=== PATIENT | male | born 1995 | race Caucasian/White ===

== ENCOUNTER 2016-12-29 00:51 | Emergency (ER) | payer OTHER ==
[~2016-12-29] VITALS: Ht 170.2 cm; Wt 61.5 kg
[~2016-12-29 00:51] MED LIST: NARCAN4 MG NS
[2016-12-29 01:10] LABS: MCH 30.3 PG (29.0-34.0); MCHC 35.2 G/DL (30.0-36.0); MCV 85.9 FL (86-99); MEAN PLAT.VOLUME 8.8 uM^3 (9.0-12.4); PLATELET COUNT 233 K/uL (156-360); RBC DIS.WIDTH-CV 12.6 % (11.8-14.6); RBC DIS.WIDTH-SD 38.8 % (39-53); RED BLOOD COUNT 4.89 M/uL (4.00-5.50)
[2016-12-29 01:20] LABS: CHLORIDE 105 mEq/L (99-109); POTASSIUM 3.7 mEq/L (3.7-5.4); SODIUM 141 mEq/L (136-147)
[2016-12-29 01:23] LABS: GLUCOSE 86 mg/dL (70-99)
[2016-12-29 01:24] LABS: ANION GAP 13 MEQ/L (2-14)
[2016-12-29 01:25] LABS: TOTAL BILIRUBIN 0.3 mg/dL (0.0-1.0)
[2016-12-29 01:26] LABS: ALKALINE PHOSPHATASE 73 IU/L (3-129); SERUM ETHYL ALCOHOL 368 mg/dL
[2016-12-29 01:27] LABS: GFR ESTIMATE (CALCULATED) > 59 mL/min/
[2016-12-29 01:28] LABS: UREA NITROGEN (BUN) 9 mg/dL (9-23)
[2016-12-29 01:39] VITALS: BP 136/96
== END 2016-12-29 01:39 | disposition home or self-care (01) ==
LOC: EME 00:51
PROVIDERS: Emergency Medicine
DX: F10.129 Alcohol abuse with intoxication, unspecified (principal); F17.200 Nicotine dependence, unspecified, uncomplicated; Z21 Asymptomatic human immunodeficiency virus [HIV] infection status
CPT/HCPCS: 80053; 81003; 85027; 99281; 99284; G0480

== ENCOUNTER 2017-03-21 00:12 | Inpatient (IN) | payer OTHER ==
[~2017-03-21] VITALS: Ht 170.2 cm; Wt 63.0 kg
[2017-03-21 00:48] LABS: HEMATOCRIT 43.2 % (38.0-50.0); MCH 32.2 PG (29.0-34.0); MCHC 33.1 G/DL (30.0-36.0); MCV 97.3 FL (86-99); MEAN PLAT.VOLUME 9.6 uM^3 (9.0-12.4); PLATELET COUNT 96 K/uL (156-360); RED BLOOD COUNT 4.44 M/uL (4.00-5.50); WHITE BLOOD COUNT 7.3 K/uL (4.1-10.2)
[2017-03-21 00:57] LABS: CHLORIDE 102 mEq/L (99-109); POTASSIUM 3.4 mEq/L (3.7-5.4); SODIUM 140 mEq/L (136-147)
[2017-03-21 00:59] LABS: GLUCOSE 143 mg/dL (70-99)
[2017-03-21 01:01] LABS: ANION GAP 26 MEQ/L (2-14)
[2017-03-21 01:02] LABS: SERUM ETHYL ALCOHOL < 10 mg/dL
[2017-03-21 01:03] LABS: GFR ESTIMATE (CALCULATED) > 59 mL/min/
[2017-03-21 01:05] LABS: UREA NITROGEN (BUN) 9 mg/dL (9-23)
[2017-03-21 01:06] LABS: SALICYLATE < 5.0 MG/DL (15-30)
[2017-03-21 01:07] LABS: CREATINE KINASE 385 IU/L (1-294); TOTAL CK 385 IU/L (1-294)
[2017-03-21 01:12] LABS: CK-MB 3.4 ng/mL (0.0-4.9)
[2017-03-21 03:02] LABS: CREATININE 0.7 mg/dL (0.6-1.3); POTASSIUM 4.4 mEq/L (3.7-5.4)
[2017-03-21 05:25] VITALS: BP 132/76
[2017-03-21 08:25] VITALS: BP 127/82
[2017-03-21 10:47] LABS: ALKALINE PHOSPHATASE 65 IU/L (3-129); ANION GAP 11 MEQ/L (2-14); CHLORIDE 103 MEQ/L (99-109); GFR ESTIMATE (CALCULATED) > 59 mL/min/; POTASSIUM 3.9 MEQ/L (3.7-5.4); SAMPLE HEMOLYSIS CHECK 0; SAMPLE ICTERIC CHECK 0; SAMPLE LIPEMIA CHECK 0; SODIUM 138 MEQ/L (136-147); TOTAL BILIRUBIN 1.4 MG/DL (0.0-1.0); UREA NITROGEN (BUN) 7 mg/dL (9-23)
[2017-03-21 10:48] LABS: GLUCOSE 84 mg/dL (70-99)
[2017-03-21] MEDS ORDERED: VENTOLIN HFA18 GM IH (11:01)
[2017-03-21] MEDS ORDERED: GENVOYA TABLET1 EACH PO (11:02)
[2017-03-21] MEDS ORDERED: METHADONE H5 MG/5 ML PO (11:43)
[2017-03-21 12:26] VITALS: BP 136/87
[2017-03-21 16:00] VITALS: BP 150/79
[2017-03-21 19:38] VITALS: BP 147/91
[2017-03-22 00:10] VITALS: BP 139/89
[2017-03-22 03:50] VITALS: BP 133/86
[2017-03-22 06:43] VITALS: BP 129/76
[2017-03-22 07:29] LABS: ALKALINE PHOSPHATASE 66 IU/L (3-129); ANION GAP 11 MEQ/L (2-14); CHLORIDE 98 MEQ/L (99-109); GFR ESTIMATE (CALCULATED) > 59 mL/min/; GLUCOSE 79 mg/dL (70-99); POTASSIUM 3.4 MEQ/L (3.7-5.4); SAMPLE HEMOLYSIS CHECK 0; SAMPLE ICTERIC CHECK 0; SAMPLE LIPEMIA CHECK 0; SODIUM 138 MEQ/L (136-147); TOTAL BILIRUBIN 1.4 MG/DL (0.0-1.0); UREA NITROGEN (BUN) 6 mg/dL (9-23)
[2017-03-22 07:37] LABS: EOSINOPHIL (%) 2.3 % (0-5); EOSINOPHIL COUNT 0.1 K/uL (0-0.3); HEMATOCRIT 41.6 % (38.0-50.0); IMMATURE GRANULOCYTE (%) 0.6 % (0.0-0.7); LYMPHOCYTE COUNT 1.1 K/uL (1.0-2.8); MCH 31.9 PG (29.0-34.0); MCHC 33.2 G/DL (30.0-36.0); MCV 96.1 FL (86-99); MONOCYTE (%) 5.8 % (3-12); MONOCYTE COUNT 0.2 K/uL (0-0.8); NEUTROPHIL (%) 58.2 % (45-76); PLATELET COUNT 75 K/uL (156-360); RBC DIS.WIDTH-CV 11.5 % (11.8-14.6); RED BLOOD COUNT 4.33 M/uL (4.00-5.50)
[2017-03-22 07:43] LABS: WHITE BLOOD COUNT 3.5 K/uL (4.1-10.2)
== END 2017-03-22 10:10 | disposition left against medical advice (07) | DRG 894 ==
LOC: EME 00:12 → EDOF 04:14 → 5EAST 04:52
PROVIDERS: Emergency Medicine; Hospitalist; Internal Medicine
DX: F10.239 Alcohol dependence with withdrawal, unspecified (principal); R56.9 Unspecified convulsions; E87.2 Acidosis; D69.6 Thrombocytopenia, unspecified; Y90.0 Blood alcohol level of less than 20 mg/100 ml; F11.10 Opioid abuse, uncomplicated; B20 Human immunodeficiency virus [HIV] disease; E87.6 Hypokalemia; R73.9 Hyperglycemia, unspecified; F17.200 Nicotine dependence, unspecified, uncomplicated
CPT/HCPCS: 70450; 71010; 80047; 80048; 80053; 82550; 82553; 83735; 85025; 85027; 93005; 99202; 99281; 99285; G0480; J1630; J1644; J2060; J3411; J3475; J3480; J7030; S0028

== ENCOUNTER 2017-03-24 10:14 | Emergency (ER) | payer OTHER ==
[~2017-03-24] VITALS: Ht 170.2 cm; Wt 58.3 kg
[~2017-03-24 10:14] MED LIST changes: +GENVOYA TABLET1 EACH PO; +METHADONE H5 MG/5 ML PO; +VENTOLIN HFA18 GM IH
[2017-03-24 11:07] LABS: HEMATOCRIT 40.5 % (38.0-50.0); MCH 32.1 PG (29.0-34.0); MCHC 33.1 G/DL (30.0-36.0); MCV 96.9 FL (86-99); MEAN PLAT.VOLUME 9.1 uM^3 (9.0-12.4); PLATELET COUNT 111 K/uL (156-360); RBC DIS.WIDTH-CV 11.9 % (11.8-14.6); RBC DIS.WIDTH-SD 42.7 % (39-53); RED BLOOD COUNT 4.18 M/uL (4.00-5.50); WHITE BLOOD COUNT 5.2 K/uL (4.1-10.2)
[2017-03-24 11:16] LABS: CHLORIDE 101 mEq/L (99-109); POTASSIUM 4.8 mEq/L (3.7-5.4); SODIUM 139 mEq/L (136-147)
[2017-03-24 11:20] LABS: GFR ESTIMATE (CALCULATED) > 59 mL/min/; GLUCOSE 103 mg/dL (70-99)
[2017-03-24 11:21] LABS: UREA NITROGEN (BUN) 12 mg/dL (9-23)
[2017-03-24 11:25] LABS: SERUM ETHYL ALCOHOL < 10 mg/dL
[2017-03-24 11:30] LABS: TROP-I INTERPRETATION NEGATIVE; TROPONIN-I < 0.01 ng/mL (0.0-0.30)
[2017-03-24 12:29] LABS: POINT-OF-CARE METER ID UU14100415
[2017-03-24 12:31] LABS: ANION GAP 11 MEQ/L (2-14)
[2017-03-24 12:44] LABS: TOTAL BILIRUBIN 0.4 mg/dL (0.0-1.0)
[2017-03-24 12:45] LABS: ALKALINE PHOSPHATASE 68 IU/L (3-129)
[2017-03-24 12:47] LABS: DIRECT BILIRUBIN 0.2 mg/dL (0.0-0.3)
[2017-03-24 12:48] LABS: LIPASE 83 U/L (1.0-51.0)
[2017-03-24 13:06] LABS: AMPHETAMINE NEGATIVE (500 ng/mL); BARBITURATES NEGATIVE (200 ng/mL); BENZODIAZEPINES NEGATIVE (150 ng/mL); COCAINE NEGATIVE (150 ng/mL); INTERNAL CONTROLS VALID? YES; METHADONE PRESUMPTIVE POSITIVE (200 ng/mL); METHAMPHETAMINE NEGATIVE (500 ng/mL); OPIATES (MORPHINE) NEGATIVE (100 ng/mL); OXYCODONE NEGATIVE (100 ng/mL); PHENCYCLIDINE NEGATIVE (25 ng/mL); PROPOXYPHENE NEGATIVE (300 ng/mL); THC CANNABINOIDS NEGATIVE (50 ng/mL); TRICYCLIC ANTIDEPRESSANTS NEGATIVE (300 ng/mL)
[2017-03-24 13:23] LABS: TROP-I INTERPRETATION NEGATIVE; TROPONIN-I < 0.01 ng/mL (0.0-0.30)
[2017-03-24] MEDS ORDERED: ZOFRAN ODT4 MG PO (13:43)
[2017-03-24] MEDS ORDERED: LIBRIUM25 MG PO (13:43)
[2017-03-24 14:06] VITALS: BP 136/91
== END 2017-03-24 14:07 | disposition home or self-care (01) ==
LOC: EME 10:14
PROVIDERS: Nurse Practitioner Family
DX: F10.10 Alcohol abuse, uncomplicated (principal); R07.9 Chest pain, unspecified; F43.9 Reaction to severe stress, unspecified; Z21 Asymptomatic human immunodeficiency virus [HIV] infection status; F19.10 Other psychoactive substance abuse, uncomplicated; R56.9 Unspecified convulsions; F17.200 Nicotine dependence, unspecified, uncomplicated
CPT/HCPCS: 71020; 80048; 80076; 82948; 83690; 84484; 85027; 90832; 93005; 99281; 99284; G0480

== ENCOUNTER 2017-04-01 23:36 | Emergency (ER) | payer OTHER ==
[~2017-04-01] VITALS: Ht 170.2 cm; Wt 57.5 kg
[~2017-04-01 23:36] MED LIST changes: +LIBRIUM25 MG PO; +ZOFRAN ODT4 MG PO
[2017-04-02] MEDS ORDERED: MOTRIN800 MG PO (01:19)
[2017-04-02] MEDS ORDERED: VALIUM5 MG PO (01:19)
[2017-04-02 01:29] VITALS: BP 110/64
== END 2017-04-02 01:42 | disposition home or self-care (01) ==
LOC: EME 23:36
DX: S09.90XA Unspecified injury of head, initial encounter (principal); S00.81XA Abrasion of other part of head, initial encounter; T74.11XA Adult physical abuse, confirmed, initial encounter; Y04.0XXA Assault by unarmed brawl or fight, initial encounter; Y07.03 Male partner, perpetrator of maltreatment and neglect; M54.2 Cervicalgia; F17.200 Nicotine dependence, unspecified, uncomplicated
CPT/HCPCS: 72040; 99281; 99283

== ENCOUNTER 2017-04-14 16:58 | Inpatient (IN) | payer OTHER ==
[~2017-04-14] VITALS: Ht 170.2 cm; Wt 57.6 kg
[~2017-04-14 16:58] MED LIST changes: +MOTRIN800 MG PO; +VALIUM5 MG PO
[2017-04-14 17:26] LABS: EOSINOPHIL (%) 1.2 % (0-5); EOSINOPHIL COUNT 0.1 K/uL (0-0.3); HEMATOCRIT 41.4 % (38.0-50.0); IMMATURE GRANULOCYTE (%) 0.4 % (0.0-0.7); INSTRUMENT ABS NEUTROPHIL CT 4.8 K/uL; LYMPHOCYTE COUNT 5.1 K/uL (1.0-2.8); MCH 31.5 PG (29.0-34.0); MCHC 33.6 G/DL (30.0-36.0); MCV 93.9 FL (86-99); MONOCYTE COUNT 0.8 K/uL (0-0.8); NEUTROPHIL (%) 44.2 % (45-76); NEUTROPHIL COUNT 4.8 K/uL (1.8-6.4); PLATELET COUNT 194 K/uL (156-360); RBC DIS.WIDTH-CV 11.4 % (11.8-14.6); RBC DIS.WIDTH-SD 38.9 % (39-53); RED BLOOD COUNT 4.41 M/uL (4.00-5.50)
[2017-04-14 17:31] LABS: AMYLASE 207 IU/L (1-118); CHLORIDE 103 mEq/L (99-109); POTASSIUM 3.4 mEq/L (3.7-5.4)
[2017-04-14 17:32] LABS: SODIUM 139 mEq/L (136-147)
[2017-04-14 17:35] LABS: ANION GAP 11 MEQ/L (2-14)
[2017-04-14 17:36] LABS: SERUM ETHYL ALCOHOL 293 mg/dL; WHITE BLOOD COUNT 10.8 K/uL (4.1-10.2)
[2017-04-14 17:37] LABS: GFR ESTIMATE (CALCULATED) > 59 mL/min/
[2017-04-14 17:38] LABS: GLUCOSE 102 mg/dL (70-99); UREA NITROGEN (BUN) 13 mg/dL (9-23)
[2017-04-14 17:40] LABS: LIPASE 164 U/L (1.0-51.0)
[2017-04-14 18:09] LABS: ADD MIUA? YES; BILIRUBIN NEGATIVE; BLOOD MODERATE; COLOR STRAW ((YELLOW)); GLUCOSE (STRIP) NEGATIVE; KETONES NEGATIVE; LEUKOCYTES NEGATIVE; NITRITE NEGATIVE; PROTEIN (STRIP) NEGATIVE; SPECIFIC GRAVITY 1.015 (1.000-1.030); UROBILINOGEN 0.2 MG/DL (0.2-1.0)
[2017-04-14 18:17] LABS: BACTERIA NONE SEEN /HPF; EPITHELIAL CELLS NONE SEEN /HPF; MUCUS NONE SEEN /LPF; RED BLOOD CELLS 0-5 /HPF (0-5); UCUL ADDED? NO; WHITE BLOOD CELLS 0-5 /HPF (0-5)
[2017-04-14 18:31] LABS: ADD MEDTOX COMMENT Y; AMPHETAMINE NEGATIVE (500 ng/mL); BARBITURATES NEGATIVE (200 ng/mL); BENZODIAZEPINES PRESUMPTIVE POSITIVE (150 ng/mL); COCAINE NEGATIVE (150 ng/mL); INTERNAL CONTROLS VALID? YES; METHADONE PRESUMPTIVE POSITIVE (200 ng/mL); METHAMPHETAMINE NEGATIVE (500 ng/mL); OPIATES (MORPHINE) NEGATIVE (100 ng/mL); OXYCODONE NEGATIVE (100 ng/mL); PHENCYCLIDINE NEGATIVE (25 ng/mL); PROPOXYPHENE NEGATIVE (300 ng/mL); THC CANNABINOIDS NEGATIVE (50 ng/mL); TRICYCLIC ANTIDEPRESSANTS NEGATIVE (300 ng/mL)
[2017-04-14 18:38] LABS: BASE EXCESS 2.4 mEq/L (-3 to +3); BICARBONATE 27.2 mEq/L (22-26); CARBOXY HGB 2.2 % (0-5); METHEMOGLOBIN 1.1 % (0-1.5); PCO2 42 mm Hg (35-45); PO2 169 mm Hg (80-100); pH 7.42 (7.35-7.45)
[2017-04-14 18:39] LABS: COMMENTS - BLOOD GASES +C; DEVICE PB840; FI02 40 %; MECHANICAL RATE 14 resp/min; MODE AC; PEEP 5 CM/H20; SITE LR +A; TIDAL VOLUME 450 ML; TOTAL RESP RATE 27 resp/min
[2017-04-14 19:40] LABS: BENZODIAZEPINES, URINE SCREEN POSITIVE (200 ng/mL)
[2017-04-14 20:14] LABS: CREATINE KINASE 610 IU/L (1-294)
[2017-04-14 21:25] VITALS: BP 172/89
[2017-04-14 21:30] VITALS: BP 172/89
[2017-04-14 22:00] VITALS: BP 119/70
[2017-04-14 23:00] VITALS: BP 122/66
[2017-04-15] VITALS (21 sets, daily range): BP systolic 115–153; BP diastolic 66–97
[2017-04-15 02:02] LABS: METH RESISTANT S AUREUS PCR NEGATIVE (NEGATIVE)
[2017-04-15 02:11] LABS: PROBE CHECK PASS; SPECIMEN PROCESSING CONTROL PASS
[2017-04-15 06:39] LABS: HEMATOCRIT 34.5 % (38.0-50.0); MCH 32.5 PG (29.0-34.0); MCHC 33.6 G/DL (30.0-36.0); MCV 96.6 FL (86-99); RBC DIS.WIDTH-CV 11.8 % (11.8-14.6); RBC DIS.WIDTH-SD 41.3 % (39-53); RED BLOOD COUNT 3.57 M/uL (4.00-5.50); WHITE BLOOD COUNT 6.9 K/uL (4.1-10.2)
[2017-04-15 06:47] LABS: MEAN PLAT.VOLUME 9.6 uM^3 (9.0-12.4); PLAT.SUFFICIENCY DECREASED
[2017-04-15 06:54] LABS: PLATELET COUNT 109 K/uL (156-360)
[2017-04-15 07:49] LABS: ALKALINE PHOSPHATASE 64 IU/L (3-129); ANION GAP 10 MEQ/L (2-14); CHLORIDE 102 MEQ/L (99-109); GFR ESTIMATE (CALCULATED) > 59 mL/min/; GLUCOSE 82 mg/dL (70-99); MAGNESIUM 1.4 mg/dl (1.3-2.7); POTASSIUM 3.5 MEQ/L (3.7-5.4); SAMPLE HEMOLYSIS CHECK 0; SAMPLE ICTERIC CHECK 0; SAMPLE LIPEMIA CHECK 0; SODIUM 141 MEQ/L (136-147); TRIGLYCERIDES 93 MG/DL (Normal: <150); UREA NITROGEN (BUN) 8 mg/dL (9-23)
[2017-04-15 07:51] LABS: TOTAL BILIRUBIN 0.9 MG/DL (0.0-1.0)
[2017-04-15] MEDS ORDERED: GENVOYA TABLET1 EACH PO (12:30)
[2017-04-15] MEDS ORDERED: METHADONE 22 MG/1 ML PO (13:48)
[2017-04-15] MEDS ORDERED: NEURONTIN300 MG PO (14:16)
[2017-04-16] VITALS (13 sets, daily range): BP systolic 108–139; BP diastolic 69–87
[2017-04-16 06:59] LABS: HEMATOCRIT 35.5 % (38.0-50.0); MCH 31.8 PG (29.0-34.0); MCV 96.5 FL (86-99); MEAN PLAT.VOLUME 9.8 uM^3 (9.0-12.4); PLATELET COUNT 93 K/uL (156-360); RBC DIS.WIDTH-CV 11.2 % (11.8-14.6); RBC DIS.WIDTH-SD 39.8 % (39-53); RED BLOOD COUNT 3.68 M/uL (4.00-5.50); WHITE BLOOD COUNT 5.9 K/uL (4.1-10.2)
[2017-04-16 07:16] LABS: ALKALINE PHOSPHATASE 69 IU/L (3-129); ANION GAP 10 MEQ/L (2-14); CHLORIDE 102 MEQ/L (99-109); GFR ESTIMATE (CALCULATED) > 59 mL/min/; GLUCOSE 84 mg/dL (70-99); SAMPLE HEMOLYSIS CHECK 0; SAMPLE ICTERIC CHECK 0; SAMPLE LIPEMIA CHECK 0; SODIUM 137 MEQ/L (136-147); UREA NITROGEN (BUN) 6 mg/dL (9-23)
[2017-04-16 07:19] LABS: MAGNESIUM 1.8 mg/dl (1.3-2.7); TOTAL BILIRUBIN 1.3 MG/DL (0.0-1.0)
[2017-04-17 04:00] VITALS: BP 141/82
[2017-04-17 06:04] LABS: HEMATOCRIT 32.2 % (38.0-50.0); MCH 32.4 PG (29.0-34.0); MCHC 33.9 G/DL (30.0-36.0); MCV 95.8 FL (86-99); MEAN PLAT.VOLUME 9.8 uM^3 (9.0-12.4); PLATELET COUNT 103 K/uL (156-360); RBC DIS.WIDTH-CV 11.3 % (11.8-14.6); RBC DIS.WIDTH-SD 39.6 % (39-53); RED BLOOD COUNT 3.36 M/uL (4.00-5.50)
[2017-04-17 06:23] LABS: ALKALINE PHOSPHATASE 51 IU/L (3-129); ANION GAP 8 MEQ/L (2-14); CHLORIDE 105 MEQ/L (99-109); GFR ESTIMATE (CALCULATED) > 59 mL/min/; GLUCOSE 96 mg/dL (70-99); POTASSIUM 3.5 MEQ/L (3.7-5.4); SAMPLE HEMOLYSIS CHECK 0; SAMPLE ICTERIC CHECK 0; SAMPLE LIPEMIA CHECK 0; SODIUM 142 MEQ/L (136-147); UREA NITROGEN (BUN) 3 mg/dL (9-23)
[2017-04-17 06:24] LABS: MAGNESIUM 1.5 mg/dl (1.3-2.7); TOTAL BILIRUBIN 0.5 MG/DL (0.0-1.0)
[2017-04-17 08:00] VITALS: BP 117/85
[2017-04-17 12:00] VITALS: BP 128/82
[2017-04-17 16:00] VITALS: BP 133/94
[2017-04-17 19:00] VITALS: BP 125/70
[2017-04-17 20:00] VITALS: BP 138/82
[2017-04-18 03:00] VITALS: BP 115/73
[2017-04-18 07:18] LABS: ALKALINE PHOSPHATASE 53 IU/L (3-129); ANION GAP 7 MEQ/L (2-14); CHLORIDE 101 MEQ/L (99-109); GFR ESTIMATE (CALCULATED) > 59 mL/min/; GLUCOSE 86 mg/dL (70-99); MAGNESIUM 1.4 mg/dl (1.3-2.7); POTASSIUM 3.5 MEQ/L (3.7-5.4); SAMPLE HEMOLYSIS CHECK 0; SAMPLE ICTERIC CHECK 0; SAMPLE LIPEMIA CHECK 0; SODIUM 138 MEQ/L (136-147); TOTAL BILIRUBIN 0.5 MG/DL (0.0-1.0); UREA NITROGEN (BUN) 4 mg/dL (9-23)
[2017-04-18 07:24] LABS: HEMATOCRIT 33.7 % (38.0-50.0); MCH 31.9 PG (29.0-34.0); MCHC 33.5 G/DL (30.0-36.0); MCV 95.2 FL (86-99); MEAN PLAT.VOLUME 9.6 uM^3 (9.0-12.4); PLATELET COUNT 122 K/uL (156-360); RBC DIS.WIDTH-CV 11.3 % (11.8-14.6); RBC DIS.WIDTH-SD 39.6 % (39-53); RED BLOOD COUNT 3.54 M/uL (4.00-5.50); WHITE BLOOD COUNT 6.2 K/uL (4.1-10.2)
[2017-04-18 08:39] VITALS: BP 122/68
[2017-04-18 15:30] VITALS: BP 117/67
[2017-04-18 17:19] LABS: ADD MIUA? YES; BILIRUBIN NEGATIVE; BLOOD MODERATE; COLOR YELLOW ((YELLOW)); GLUCOSE (STRIP) NEGATIVE; KETONES NEGATIVE; LEUKOCYTES NEGATIVE; NITRITE NEGATIVE; PROTEIN (STRIP) NEGATIVE
[2017-04-18 17:32] LABS: BACTERIA RARE /HPF; EPITHELIAL CELLS NONE SEEN /HPF; MUCUS TRACE /LPF; RED BLOOD CELLS 20-30 /HPF (0-5); UCUL ADDED? NO; WHITE BLOOD CELLS 0-5 /HPF (0-5)
[2017-04-18 19:16] VITALS: BP 117/66
[2017-04-18 23:14] VITALS: BP 117/76
[2017-04-19 07:07] LABS: HEMATOCRIT 35.7 % (38.0-50.0); MCH 32.2 PG (29.0-34.0); MCHC 33.1 G/DL (30.0-36.0); MCV 97.3 FL (86-99); MEAN PLAT.VOLUME 9.5 uM^3 (9.0-12.4); PLATELET COUNT 138 K/uL (156-360); RBC DIS.WIDTH-CV 11.6 % (11.8-14.6); RBC DIS.WIDTH-SD 41.4 % (39-53); RED BLOOD COUNT 3.67 M/uL (4.00-5.50); WHITE BLOOD COUNT 4.1 K/uL (4.1-10.2)
[2017-04-19 07:22] VITALS: BP 113/63
[2017-04-19 07:46] LABS: ALKALINE PHOSPHATASE 58 IU/L (3-129); ANION GAP 8 MEQ/L (2-14); CHLORIDE 103 MEQ/L (99-109); GFR ESTIMATE (CALCULATED) > 59 mL/min/; GLUCOSE 88 mg/dL (70-99); SAMPLE HEMOLYSIS CHECK 0; SAMPLE ICTERIC CHECK 0; SAMPLE LIPEMIA CHECK 0; SODIUM 141 MEQ/L (136-147); TOTAL BILIRUBIN 0.4 MG/DL (0.0-1.0); UREA NITROGEN (BUN) 9 mg/dL (9-23)
[2017-04-19 07:48] LABS: MAGNESIUM 1.7 mg/dl (1.3-2.7); POTASSIUM 4.7 MEQ/L (3.7-5.4)
[2017-04-19 12:16] VITALS: BP 109/67
[2017-04-19] MEDS ORDERED: METHADONE1 MG/1 ML PO (14:51)
[2017-04-19] MEDS ORDERED: Thiamine,Vitamin B1 PO (14:51)
[2017-04-19] MEDS ORDERED: FOLIC ACID1 MG PO (14:51)
[2017-04-19] MEDS ORDERED: THERAGRAN1 TABLET PO (14:51)
[2017-04-19 16:55] VITALS: BP 113/62
== END 2017-04-19 17:27 | disposition home or self-care (01) | DRG 922 ==
LOC: TRA 16:58 → 4WEST 17:59 → EDOF 17:59 → 4WEST 21:15 → 3EAST 04-18 08:10
PROVIDERS: Emergency Medicine; Internal Medicine Critical Care Medicine; Physician Assistant Surgical
DX: T79.8XXA Other early complications of trauma, initial encounter (principal); J96.01 Acute respiratory failure with hypoxia; I46.8 Cardiac arrest due to other underlying condition; F10.231 Alcohol dependence with withdrawal delirium; S02.2XXA Fracture of nasal bones, initial encounter for closed fracture; F22 Delusional disorders; Z21 Asymptomatic human immunodeficiency virus [HIV] infection status; G40.909 Epilepsy, unspecified, not intractable, without status epilepticus; F11.10 Opioid abuse, uncomplicated; J34.2 Deviated nasal septum; F17.200 Nicotine dependence, unspecified, uncomplicated; K08.9 Disorder of teeth and supporting structures, unspecified; R00.0 Tachycardia, unspecified; R40.2430 Glasgow coma scale score 3-8, unspecified time; S00.83XA Contusion of other part of head, initial encounter; S02.652A Fracture of angle of left mandible, initial encounter for closed fracture; Y90.8 Blood alcohol level of 240 mg/100 ml or more; Y29.XXXA Contact with blunt object, undetermined intent, initial encounter; X58.XXXA Exposure to other specified factors, initial encounter; Y92.009 Unspecified place in unspecified non-institutional (private) residence as the place of occurrence of the external cause; Y93.89 Activity, other specified; Y92.9 Unspecified place or not applicable; Q76.2 Congenital spondylolisthesis
CPT/HCPCS: 36415; 36600; 70450; 70486; 71010; 71260; 72125; 72129; 72132; 73140; 74177; 80048; 80053; 81003; 82150; 82550; 82803; 83690; 83735; 83874 90; 84100; 84478; 84999; 85025; 85027; 86355 90; 86359 90; 86360 90; 86900; 86901; 87070; 87205; 87536; 87641; 94002; 99281; 99285; G0480; J0295; J1650; J2060; J2405; J2704; J3475; J7050; J7120; S0028

== ENCOUNTER 2017-06-01 11:09 | Inpatient (IN) | payer OTHER ==
[~2017-06-01] VITALS: Ht 167.6 cm; Wt 61.0 kg
[~2017-06-01 11:09] MED LIST changes: +FOLIC ACID1 MG PO; +METHADONE 22 MG/1 ML PO; +METHADONE1 MG/1 ML PO; +NEURONTIN300 MG PO; +THERAGRAN1 TABLET PO; +Thiamine,Vitamin B1 PO
[2017-06-01 11:58] LABS: HEMATOCRIT 41.9 % (38.0-50.0); MCH 31.1 PG (29.0-34.0); MCHC 34.1 G/DL (30.0-36.0); MCV 91.1 FL (86-99); PLATELET COUNT 178 K/uL (156-360); RBC DIS.WIDTH-CV 12.6 % (11.8-14.6); RBC DIS.WIDTH-SD 41.8 % (39-53); WHITE BLOOD COUNT 6.3 K/uL (4.1-10.2)
[2017-06-01 12:10] LABS: CHLORIDE 110 mEq/L (99-109); POTASSIUM 4.2 mEq/L (3.7-5.4); SODIUM 147 mEq/L (136-147)
[2017-06-01 12:13] LABS: GLUCOSE 102 mg/dL (70-99)
[2017-06-01 12:14] LABS: TOTAL BILIRUBIN 0.6 mg/dL (0.0-1.0)
[2017-06-01 12:15] LABS: SERUM ETHYL ALCOHOL < 10 mg/dL
[2017-06-01 12:16] LABS: GFR ESTIMATE (CALCULATED) > 59 mL/min/
[2017-06-01 12:17] LABS: ALKALINE PHOSPHATASE 65 IU/L (3-129); ANION GAP 16 MEQ/L (2-14)
[2017-06-01 12:18] LABS: UREA NITROGEN (BUN) 13 mg/dL (9-23)
[2017-06-01 12:20] LABS: CREATINE KINASE 399 IU/L (1-294); SALICYLATE < 5.0 MG/DL (15-30)
[2017-06-01] MEDS ORDERED: ZOLOFT100 MG PO (15:35)
[2017-06-01] MEDS ORDERED: SEROQUEL50 MG PO (15:36)
[2017-06-01 16:53] LABS: AMPHETAMINE NEGATIVE (500 ng/mL); BARBITURATES NEGATIVE (200 ng/mL); BENZODIAZEPINES PRESUMPTIVE POSITIVE (150 ng/mL); COCAINE NEGATIVE (150 ng/mL); INTERNAL CONTROLS VALID? YES; METHADONE NEGATIVE (200 ng/mL); METHAMPHETAMINE NEGATIVE (500 ng/mL); OPIATES (MORPHINE) NEGATIVE (100 ng/mL); OXYCODONE NEGATIVE (100 ng/mL); PHENCYCLIDINE NEGATIVE (25 ng/mL); PROPOXYPHENE NEGATIVE (300 ng/mL); THC CANNABINOIDS NEGATIVE (50 ng/mL); TRICYCLIC ANTIDEPRESSANTS PRESUMPTIVE POSITIVE (300 ng/mL)
[2017-06-01 16:54] LABS: ADD MEDTOX COMMENT Y
[2017-06-01 17:39] LABS: BENZODIAZEPINES, URINE SCREEN POSITIVE (200 ng/mL)
[2017-06-01 21:50] LABS: POINT-OF-CARE METER ID UU13113702
[2017-06-01 22:50] LABS: TROP-I INTERPRETATION NEGATIVE; TROPONIN-I < 0.01 ng/mL (0.0-0.30)
[2017-06-02] VITALS (11 sets, daily range): BP systolic 128–149; BP diastolic 70–99
[2017-06-02 09:10] LABS: HEMATOCRIT 37.4 % (38.0-50.0); MCH 32.6 PG (29.0-34.0); MCHC 35.3 G/DL (30.0-36.0); MCV 92.3 FL (86-99); MEAN PLAT.VOLUME 8.7 uM^3 (9.0-12.4); PLATELET COUNT 149 K/uL (156-360); RBC DIS.WIDTH-CV 12.5 % (11.8-14.6); RBC DIS.WIDTH-SD 42.1 % (39-53); RED BLOOD COUNT 4.05 M/uL (4.00-5.50)
[2017-06-02 09:36] LABS: ALKALINE PHOSPHATASE 59 IU/L (3-129); ANION GAP 8 MEQ/L (2-14); CHLORIDE 108 MEQ/L (99-109); GLUCOSE 80 mg/dL (70-99); POTASSIUM 4.2 MEQ/L (3.7-5.4); SAMPLE HEMOLYSIS CHECK 0; SAMPLE ICTERIC CHECK 0; SAMPLE LIPEMIA CHECK 0; TOTAL BILIRUBIN 1.1 MG/DL (0.0-1.0); UREA NITROGEN (BUN) 6 mg/dL (9-23)
[2017-06-02 09:37] LABS: GFR ESTIMATE (CALCULATED) > 59 mL/min/; SODIUM 138 MEQ/L (136-147)
[2017-06-02 13:00] LABS: CREATINE KINASE 425 IU/L (1-294)
[2017-06-03 00:23] VITALS: BP 119/74
[2017-06-03 03:02] VITALS: BP 107/60
[2017-06-03 06:06] LABS: EOSINOPHIL (%) 3.8 % (0-5); EOSINOPHIL COUNT 0.2 K/uL (0-0.3); HEMATOCRIT 38.1 % (38.0-50.0); IMMATURE GRANULOCYTE (%) 0.2 % (0.0-0.7); LYMPHOCYTE COUNT 1.6 K/uL (1.0-2.8); MCH 32.5 PG (29.0-34.0); MCHC 35.4 G/DL (30.0-36.0); MCV 91.6 FL (86-99); MEAN PLAT.VOLUME 8.7 uM^3 (9.0-12.4); MONOCYTE (%) 10.3 % (3-12); MONOCYTE COUNT 0.4 K/uL (0-0.8); NEUTROPHIL (%) 47.1 % (45-76); PLATELET COUNT 147 K/uL (156-360); RBC DIS.WIDTH-CV 12.5 % (11.8-14.6); RBC DIS.WIDTH-SD 41.4 % (39-53); RED BLOOD COUNT 4.16 M/uL (4.00-5.50); WHITE BLOOD COUNT 4.2 K/uL (4.1-10.2)
[2017-06-03 06:29] LABS: ALKALINE PHOSPHATASE 53 IU/L (3-129); ANION GAP 6 MEQ/L (2-14); CHLORIDE 111 MEQ/L (99-109); GFR ESTIMATE (CALCULATED) > 59 mL/min/; GLUCOSE 87 mg/dL (70-99); POTASSIUM 4.1 MEQ/L (3.7-5.4); SAMPLE HEMOLYSIS CHECK 0; SAMPLE ICTERIC CHECK 0; SAMPLE LIPEMIA CHECK 0; SODIUM 141 MEQ/L (136-147); TOTAL BILIRUBIN 0.9 MG/DL (0.0-1.0); UREA NITROGEN (BUN) 7 mg/dL (9-23)
[2017-06-03 08:00] VITALS: BP 120/73
[2017-06-03 16:50] VITALS: BP 134/84
[2017-06-03 18:49] VITALS: BP 125/77
[2017-06-03 22:45] VITALS: BP 142/86
[2017-06-04 02:44] VITALS: BP 132/83
[2017-06-04 05:47] LABS: EOSINOPHIL (%) 1.2 % (0-5); EOSINOPHIL COUNT 0.1 K/uL (0-0.3); HEMATOCRIT 38.4 % (38.0-50.0); IMMATURE GRANULOCYTE (%) 0.6 % (0.0-0.7); IMMATURE GRANULOCYTE COUNT 0.1 K/uL; INSTRUMENT ABS NEUTROPHIL CT 7.7 K/uL; LYMPHOCYTE COUNT 1.3 K/uL (1.0-2.8); MCH 32.5 PG (29.0-34.0); MCHC 35.9 G/DL (30.0-36.0); MCV 90.6 FL (86-99); MEAN PLAT.VOLUME 9.1 uM^3 (9.0-12.4); MONOCYTE (%) 6.9 % (3-12); MONOCYTE COUNT 0.7 K/uL (0-0.8); NEUTROPHIL (%) 78.3 % (45-76); NEUTROPHIL COUNT 7.7 K/uL (1.8-6.4); PLATELET COUNT 182 K/uL (156-360); RBC DIS.WIDTH-CV 12.4 % (11.8-14.6); RBC DIS.WIDTH-SD 40.6 % (39-53); RED BLOOD COUNT 4.24 M/uL (4.00-5.50); WHITE BLOOD COUNT 9.8 K/uL (4.1-10.2)
[2017-06-04 06:16] LABS: ANION GAP 9 MEQ/L (2-14); CHLORIDE 104 MEQ/L (99-109); GFR ESTIMATE (CALCULATED) > 59 mL/min/; GLUCOSE 91 mg/dL (70-99); POTASSIUM 3.6 MEQ/L (3.7-5.4); SAMPLE HEMOLYSIS CHECK 0; SAMPLE ICTERIC CHECK 0; SAMPLE LIPEMIA CHECK 0; SODIUM 139 MEQ/L (136-147); UREA NITROGEN (BUN) 10 mg/dL (9-23)
[2017-06-04 08:16] VITALS: BP 135/82
[2017-06-04 12:12] VITALS: BP 127/85
[2017-06-04 19:31] VITALS: BP 134/74
[2017-06-04 23:19] VITALS: BP 120/82
[2017-06-05 03:20] VITALS: BP 124/80
[2017-06-05 05:17] LABS: EOSINOPHIL (%) 1.3 % (0-5); EOSINOPHIL COUNT 0.1 K/uL (0-0.3); HEMATOCRIT 38.2 % (38.0-50.0); IMMATURE GRANULOCYTE (%) 0.4 % (0.0-0.7); INSTRUMENT ABS NEUTROPHIL CT 6.8 K/uL; LYMPHOCYTE COUNT 1.7 K/uL (1.0-2.8); MCH 30.8 PG (29.0-34.0); MCV 90.5 FL (86-99); MEAN PLAT.VOLUME 8.8 uM^3 (9.0-12.4); MONOCYTE (%) 9.5 % (3-12); MONOCYTE COUNT 0.9 K/uL (0-0.8); NEUTROPHIL (%) 70.6 % (45-76); NEUTROPHIL COUNT 6.8 K/uL (1.8-6.4); PLATELET COUNT 182 K/uL (156-360); RBC DIS.WIDTH-CV 12.4 % (11.8-14.6); RBC DIS.WIDTH-SD 40.5 % (39-53); RED BLOOD COUNT 4.22 M/uL (4.00-5.50); WHITE BLOOD COUNT 9.7 K/uL (4.1-10.2)
[2017-06-05 05:36] LABS: ANION GAP 11 MEQ/L (2-14); CHLORIDE 105 MEQ/L (99-109); GFR ESTIMATE (CALCULATED) > 59 mL/min/; GLUCOSE 87 mg/dL (70-99); POTASSIUM 4.1 MEQ/L (3.7-5.4); SAMPLE HEMOLYSIS CHECK 1; SAMPLE ICTERIC CHECK 0; SAMPLE LIPEMIA CHECK 0; SODIUM 138 MEQ/L (136-147); UREA NITROGEN (BUN) 9 mg/dL (9-23)
[2017-06-05 07:24] VITALS: BP 111/69
[2017-06-05 12:00] VITALS: BP 140/72
[2017-06-05 16:33] VITALS: BP 128/85
[2017-06-05] MEDS ORDERED: NICODERM CQ1 EAC2 TD (20:40)
== END 2017-06-05 18:47 | DRG 917 ==
LOC: EME 11:09 → EDOF 21:33 → 4EAST 21:33 → ENPENDDIS 06-05 → 4EAST 06-05 18:47
PROVIDERS: Emergency Medicine; Hospitalist; Internal Medicine
DX: T43.222A Poisoning by selective serotonin reuptake inhibitors, intentional self-harm, initial encounter (principal); G92 Toxic encephalopathy; F10.231 Alcohol dependence with withdrawal delirium; E87.2 Acidosis; Y92.009 Unspecified place in unspecified non-institutional (private) residence as the place of occurrence of the external cause; T43.592A Poisoning by other antipsychotics and neuroleptics, intentional self-harm, initial encounter; Z21 Asymptomatic human immunodeficiency virus [HIV] infection status; E86.0 Dehydration; F17.210 Nicotine dependence, cigarettes, uncomplicated; F32.9 Major depressive disorder, single episode, unspecified; F41.9 Anxiety disorder, unspecified; I47.1 Supraventricular tachycardia; J45.909 Unspecified asthma, uncomplicated; J98.11 Atelectasis; M62.82 Rhabdomyolysis; S00.03XD Contusion of scalp, subsequent encounter; Y08.89XD Assault by other specified means, subsequent encounter; S02.652D Fracture of angle of left mandible, subsequent encounter for fracture with routine healing; Z79.899 Other long term (current) drug therapy; Z81.1 Family history of alcohol abuse and dependence; Z82.5 Family history of asthma and other chronic lower respiratory diseases; Z86.14 Personal history of Methicillin resistant Staphylococcus aureus infection; F11.20 Opioid dependence, uncomplicated; M25.512 Pain in left shoulder; H53.8 Other visual disturbances; R47.1 Dysarthria and anarthria; S09.90XD Unspecified injury of head, subsequent encounter; H10.403 Unspecified chronic conjunctivitis, bilateral; S02.2XXD Fracture of nasal bones, subsequent encounter for fracture with routine healing; G47.00 Insomnia, unspecified
CPT/HCPCS: 70450; 70486; 71010; 73030; 80048; 80053; 82550; 82550 91; 82948; 83605; 83735; 84484; 84999; 85025; 85027; 93005; 94640; 99202; 99281; 99285; G0480; J1644; J1885; J2060; J3360; J3411; J3475; J7030; J7050; J7120; S0028

== ENCOUNTER 2017-06-05 18:20 | Inpatient (IN) | payer OTHER ==
[~2017-06-05] VITALS: Ht 167.6 cm; Wt 60.1 kg
[~2017-06-05 18:20] MED LIST changes: +SEROQUEL50 MG PO; +ZOLOFT100 MG PO
[2017-06-05 19:00] VITALS: BP 139/80
[2017-06-05] MEDS ORDERED: NICODERM CQ1 EAC2 TD (20:40)
[2017-06-06 07:32] VITALS: BP 126/79
[2017-06-06 15:46] VITALS: BP 110/61
[2017-06-07 07:52] VITALS: BP 113/67
[2017-06-07 16:06] VITALS: BP 129/73
[2017-06-08 08:10] VITALS: BP 116/70
[2017-06-08 15:42] VITALS: BP 137/87
[2017-06-09 07:44] VITALS: BP 102/58
[2017-06-09 15:38] VITALS: BP 133/78
[2017-06-10 07:46] VITALS: BP 127/63
[2017-06-10 15:51] VITALS: BP 127/95
[2017-06-11 07:40] VITALS: BP 109/75
[2017-06-11 15:19] VITALS: BP 128/68
[2017-06-12 07:49] VITALS: BP 118/58
[2017-06-12 15:30] VITALS: BP 132/85
[2017-06-13 07:45] VITALS: BP 123/65
[2017-06-13] MEDS ORDERED: ZOLPIDEM TARTRAT5 MG PO (08:42)
[2017-06-13] MEDS ORDERED: INDERAL20 MG PO (08:42)
[2017-06-13] MEDS ORDERED: ESCITALOPRAM OX20 MG PO (08:42)
== END 2017-06-13 09:41 | disposition other institution (70) | DRG 885 ==
LOC: 1WEST 18:20 → ENRESERV 18:21 → 1WEST 18:44
DX: F33.2 Major depressive disorder, recurrent severe without psychotic features (principal); B20 Human immunodeficiency virus [HIV] disease; F40.10 Social phobia, unspecified; Z91.5 Personal history of self-harm; F10.20 Alcohol dependence, uncomplicated; F11.20 Opioid dependence, uncomplicated
CPT/HCPCS: 97150 GO; 97165 GO; 99202; Q0177

== ENCOUNTER 2017-07-10 12:54 | Inpatient (IN) | payer OTHER ==
[~2017-07-10] VITALS: Ht 172.7 cm; Wt 63.4 kg
[~2017-07-10 12:54] MED LIST changes: +ESCITALOPRAM OX20 MG PO; +INDERAL20 MG PO; +NICODERM CQ1 EAC2 TD; +ZOLPIDEM TARTRAT5 MG PO
[2017-07-10 14:23] LABS: EOSINOPHIL (%) 0.3 % (0-5); HEMATOCRIT 36.9 % (38.0-50.0); IMMATURE GRANULOCYTE (%) 0.3 % (0.0-0.7); INSTRUMENT ABS NEUTROPHIL CT 5.4 K/uL; LYMPHOCYTE COUNT 1.6 K/uL (1.0-2.8); MCH 31.1 PG (29.0-34.0); MCHC 35.8 G/DL (30.0-36.0); MCV 86.8 FL (86-99); MEAN PLAT.VOLUME 8.5 uM^3 (9.0-12.4); MONOCYTE COUNT 0.4 K/uL (0-0.8); NEUTROPHIL (%) 72.6 % (45-76); NEUTROPHIL COUNT 5.4 K/uL (1.8-6.4); PLATELET COUNT 227 K/uL (156-360); RBC DIS.WIDTH-CV 11.9 % (11.8-14.6); RBC DIS.WIDTH-SD 37.9 % (39-53); RED BLOOD COUNT 4.25 M/uL (4.00-5.50); WHITE BLOOD COUNT 7.4 K/uL (4.1-10.2)
[2017-07-10 14:31] LABS: CHLORIDE 102 mEq/L (99-109); POTASSIUM 3.6 mEq/L (3.7-5.4); SODIUM 138 mEq/L (136-147)
[2017-07-10 14:33] LABS: GLUCOSE 93 mg/dL (70-99)
[2017-07-10 14:34] LABS: ANION GAP 11 MEQ/L (2-14)
[2017-07-10 14:36] LABS: ALKALINE PHOSPHATASE 73 IU/L (3-129); SERUM ETHYL ALCOHOL < 10 mg/dL
[2017-07-10 14:37] LABS: GFR ESTIMATE (CALCULATED) > 59 mL/min/
[2017-07-10 14:38] LABS: UREA NITROGEN (BUN) 10 mg/dL (9-23)
[2017-07-10 14:54] LABS: AMPHETAMINE NEGATIVE (500 ng/mL); BARBITURATES NEGATIVE (200 ng/mL); BENZODIAZEPINES NEGATIVE (150 ng/mL); COCAINE NEGATIVE (150 ng/mL); INTERNAL CONTROLS VALID? YES; METHADONE NEGATIVE (200 ng/mL); METHAMPHETAMINE NEGATIVE (500 ng/mL); OPIATES (MORPHINE) NEGATIVE (100 ng/mL); OXYCODONE NEGATIVE (100 ng/mL); PHENCYCLIDINE NEGATIVE (25 ng/mL); PROPOXYPHENE NEGATIVE (300 ng/mL); THC CANNABINOIDS NEGATIVE (50 ng/mL); TRICYCLIC ANTIDEPRESSANTS NEGATIVE (300 ng/mL)
[2017-07-10 17:07] VITALS: BP 162/88
[2017-07-10] MEDS ORDERED: TRAZODONE HCL100 MG PO (17:13)
[2017-07-10] MEDS ORDERED: PROPRANOLOL HCL20 MG PO (17:19)
[2017-07-10 17:23] VITALS: BP 162/88
[2017-07-10] MEDS ORDERED: SUBOXONE 12 MG1 EACH SL (18:00)
[2017-07-10] MEDS ORDERED: SUBOXONE 12 MG1 EACH PO (18:35)
[2017-07-11 07:48] VITALS: BP 100/51
[2017-07-11 11:28] LABS: HPCA INDEX 6.93
[2017-07-11 15:36] VITALS: BP 134/62
[2017-07-11 21:41] LABS: HCV RNA (IU/mL) <15 IU/mL (<15)
[2017-07-12 07:45] VITALS: BP 93/47
[2017-07-12 11:30] LABS: CD19 Percentage 14 % (6-29); CD19, Absolute 226 cells/uL (110-660); CD3 Percentage 77 % (57-85); CD3, Absolute 1238 cells/uL (840-3060); CD4 Percentage 34 % (30-61); CD8 Percentage 42 % (12-42); CD8, Absolute 654 cells/uL (180-1170); Lymphocytes, Absolute 1605 cells/uL (850-3900)
[2017-07-12 12:01] LABS: HIV RNA QUANT LOG10 RESULT < 1.30 Log(10) (<1.30); HIV RNA QUANT VIRAL LOAD < 20 copy/mL (<20)
[2017-07-12 12:51] LABS: HCV RNA (LOG IU/mL) <1.18 (<1.18)
[2017-07-12 15:49] VITALS: BP 99/54
[2017-07-13] MEDS ORDERED: PROPRANOLOL HCL20 MG PO (07:32)
[2017-07-13] MEDS ORDERED: TRAZODONE HCL100 MG PO (07:32)
[2017-07-13] MEDS ORDERED: ESCITALOPRAM OX20 MG PO (07:32)
[2017-07-13 07:44] VITALS: BP 107/57
== END 2017-07-13 12:35 | disposition home or self-care (01) | DRG 885 ==
LOC: EME 12:54 → EDOF 15:28 → 1WEST 15:28 → ENRESERV 16:50 → 1WEST 17:03
PROVIDERS: Emergency Medicine
DX: F33.2 Major depressive disorder, recurrent severe without psychotic features (principal); B20 Human immunodeficiency virus [HIV] disease; R45.851 Suicidal ideations; F11.20 Opioid dependence, uncomplicated; F40.10 Social phobia, unspecified; T51.0X2A Toxic effect of ethanol, intentional self-harm, initial encounter; F17.210 Nicotine dependence, cigarettes, uncomplicated; J45.909 Unspecified asthma, uncomplicated; F10.20 Alcohol dependence, uncomplicated; Y90.0 Blood alcohol level of less than 20 mg/100 ml; Z56.0 Unemployment, unspecified; Z91.14 Patient's other noncompliance with medication regimen; Z59.0 Homelessness
CPT/HCPCS: 36415; 80053; 80306 90; 85025; 86355 90; 86359 90; 86360 90; 86803; 87522 90; 87536; 90839; 93005; 99281; 99285; G0480; J0574

== ENCOUNTER 2017-07-21 22:15 | Observation (INO) | payer OTHER ==
[~2017-07-21] VITALS: Ht 170.2 cm; Wt 63.5 kg
[~2017-07-21 22:15] MED LIST changes: +PROPRANOLOL HCL20 MG PO; +SUBOXONE 12 MG1 EACH PO; +SUBOXONE 12 MG1 EACH SL; +TRAZODONE HCL100 MG PO
[2017-07-21 23:10] LABS: AMPHETAMINE NEGATIVE (500 ng/mL); BARBITURATES NEGATIVE (200 ng/mL); BENZODIAZEPINES NEGATIVE (150 ng/mL); COCAINE NEGATIVE (150 ng/mL); INTERNAL CONTROLS VALID? YES; METHADONE NEGATIVE (200 ng/mL); METHAMPHETAMINE NEGATIVE (500 ng/mL); OPIATES (MORPHINE) NEGATIVE (100 ng/mL); OXYCODONE NEGATIVE (100 ng/mL); PHENCYCLIDINE NEGATIVE (25 ng/mL); PROPOXYPHENE NEGATIVE (300 ng/mL); THC CANNABINOIDS NEGATIVE (50 ng/mL); TRICYCLIC ANTIDEPRESSANTS NEGATIVE (300 ng/mL)
[2017-07-21 23:32] LABS: CHLORIDE 109 mEq/L (99-109); POTASSIUM 3.4 mEq/L (3.7-5.4); SODIUM 145 mEq/L (136-147)
[2017-07-21 23:34] LABS: GLUCOSE 71 mg/dL (70-99)
[2017-07-21 23:35] LABS: ANION GAP 11 MEQ/L (2-14)
[2017-07-21 23:36] LABS: TOTAL BILIRUBIN 0.3 mg/dL (0.0-1.0)
[2017-07-21 23:37] LABS: SERUM ETHYL ALCOHOL 248 mg/dL
[2017-07-21 23:38] LABS: GFR ESTIMATE (CALCULATED) > 59 mL/min/
[2017-07-21 23:39] LABS: ALKALINE PHOSPHATASE 67 IU/L (3-129)
[2017-07-21 23:40] LABS: UREA NITROGEN (BUN) 8 mg/dL (9-23)
[2017-07-21 23:41] LABS: SALICYLATE < 5.0 MG/DL (15-30)
[2017-07-21 23:43] LABS: LIPASE 98 U/L (1.0-51.0)
[2017-07-21 23:50] LABS: HEMATOCRIT 35.6 % (38.0-50.0); MCH 31.3 PG (29.0-34.0); MCHC 34.6 G/DL (30.0-36.0); MCV 90.6 FL (86-99); MEAN PLAT.VOLUME 8.9 uM^3 (9.0-12.4); PLATELET COUNT 177 K/uL (156-360); RBC DIS.WIDTH-CV 12.6 % (11.8-14.6); RBC DIS.WIDTH-SD 41.9 % (39-53); RED BLOOD COUNT 3.93 M/uL (4.00-5.50); WHITE BLOOD COUNT 7.2 K/uL (4.1-10.2)
[2017-07-22 03:26] VITALS: BP 129/82
[2017-07-22 07:58] VITALS: BP 129/70
[2017-07-22 11:39] VITALS: BP 132/77
[2017-07-22 12:48] LABS: ANION GAP 6 MEQ/L (2-14); CHLORIDE 109 MEQ/L (99-109); GFR ESTIMATE (CALCULATED) > 59 mL/min/; SAMPLE HEMOLYSIS CHECK 0; SAMPLE ICTERIC CHECK 0; SAMPLE LIPEMIA CHECK 0; SODIUM 141 MEQ/L (136-147); UREA NITROGEN (BUN) 8 mg/dL (9-23)
[2017-07-22 12:52] LABS: GLUCOSE 105 mg/dL (70-99); POTASSIUM 4.3 MEQ/L (3.7-5.4)
[2017-07-22] MEDS ORDERED: FOLIC ACID1 MG PO (14:55)
[2017-07-22] MEDS ORDERED: BUPRENORPHIN-N1 EACH SL (14:55)
[2017-07-22] MEDS ORDERED: THERAGRAN1 TABLET PO (14:55)
[2017-07-22] MEDS ORDERED: MAG-AL PLUS SUS30 ML PO (14:55)
[2017-07-22] MEDS ORDERED: TYLENOL REGULA325 MG PO (14:55)
[2017-07-22] MEDS ORDERED: PROMETHAZINE HC25 M1 PO (14:55)
[2017-07-22] MEDS ORDERED: Thiamine,Vitamin B1 PO (14:55)
[2017-07-22 16:09] VITALS: BP 132/77
== END 2017-07-22 22:02 ==
LOC: EME → EDBD 22:15 → EDOF 07-22 01:07 → ENRESERV 07-22 01:09 → 5EAST 07-22 03:18
PROVIDERS: Emergency Medicine; Internal Medicine
DX: T44.7X2A Poisoning by beta-adrenoreceptor antagonists, intentional self-harm, initial encounter (principal); T43.222A Poisoning by selective serotonin reuptake inhibitors, intentional self-harm, initial encounter; T37.5X2A Poisoning by antiviral drugs, intentional self-harm, initial encounter; F40.10 Social phobia, unspecified; F33.1 Major depressive disorder, recurrent, moderate; F10.20 Alcohol dependence, uncomplicated; Z21 Asymptomatic human immunodeficiency virus [HIV] infection status; Z91.5 Personal history of self-harm; Z87.820 Personal history of traumatic brain injury; J45.909 Unspecified asthma, uncomplicated; F17.200 Nicotine dependence, unspecified, uncomplicated; F11.20 Opioid dependence, uncomplicated; D64.9 Anemia, unspecified
CPT/HCPCS: 71010; 80048; 80053; 83690; 85027; 93005; 99281; 99285; G0378; G0480; J0574; J2405; J3411; J3475; J3480; J7030; Q0169

== ENCOUNTER 2017-07-22 20:29 | Inpatient (IN) | payer OTHER ==
[~2017-07-22] VITALS: Ht 170.2 cm; Wt 63.5 kg
[~2017-07-22 20:29] MED LIST changes: +BUPRENORPHIN-N1 EACH SL; +MAG-AL PLUS SUS30 ML PO; +PROMETHAZINE HC25 M1 PO; +TYLENOL REGULA325 MG PO
[2017-07-22 22:26] VITALS: BP 110/58
[2017-07-23 08:01] VITALS: BP 119/68
[2017-07-23 15:32] VITALS: BP 114/59
[2017-07-24 07:12] VITALS: BP 110/56
[2017-07-24 15:11] VITALS: BP 95/54
[2017-07-25 07:37] VITALS: BP 111/55
[2017-07-25 15:48] VITALS: BP 116/73
[2017-07-26 07:40] VITALS: BP 119/59
[2017-07-26] MEDS ORDERED: EFFEXOR XR150 MG PO (08:52)
[2017-07-26] MEDS ORDERED: BUSPAR10 MG PO (08:53)
[2017-07-26] MEDS ORDERED: DESYREL100 MG PO (08:53)
== END 2017-07-26 10:47 | disposition home or self-care (01) | DRG 885 ==
LOC: 1WEST 20:29 → ENRESERV 20:30 → 1WEST 20:56
DX: F33.2 Major depressive disorder, recurrent severe without psychotic features (principal); R45.851 Suicidal ideations; F40.10 Social phobia, unspecified; F10.229 Alcohol dependence with intoxication, unspecified; G47.00 Insomnia, unspecified; Z79.899 Other long term (current) drug therapy; Z59.0 Homelessness; Z91.5 Personal history of self-harm; Z21 Asymptomatic human immunodeficiency virus [HIV] infection status
CPT/HCPCS: 97165 GO; J0574

== ENCOUNTER 2018-01-22 21:43 | Inpatient (IN) | payer OTHER ==
[~2018-01-22] VITALS: Ht 170.2 cm; Wt 66.6 kg
[~2018-01-22 21:43] MED LIST changes: +BUSPAR10 MG PO; +DESYREL100 MG PO; +EFFEXOR XR150 MG PO
[2018-01-22 22:42] LABS: AMPHETAMINE NEGATIVE (500 ng/mL); BARBITURATES NEGATIVE (200 ng/mL); BENZODIAZEPINES NEGATIVE (150 ng/mL); BUPRENORPHINE NEGATIVE (10 ng/mL); COCAINE NEGATIVE (150 ng/mL); METHADONE NEGATIVE (200 ng/mL); METHAMPHETAMINE NEGATIVE (500 ng/mL); OPIATES (MORPHINE) NEGATIVE (100 ng/mL); OXYCODONE NEGATIVE (100 ng/mL); PHENCYCLIDINE NEGATIVE (25 ng/mL); PROPOXYPHENE NEGATIVE (300 ng/mL); THC CANNABINOIDS NEGATIVE (50 ng/mL); TRICYCLIC ANTIDEPRESSANTS NEGATIVE (300 ng/mL)
[2018-01-22 22:54] LABS: HEMATOCRIT 46.2 % (38.0-50.0); HEMOGLOBIN 15.9 G/DL (12.5-16.6); MCHC 34.4 G/DL (30.0-36.0); MCV 84.2 FL (86-99); PLATELET COUNT 217 K/uL (156-360); RBC DIS.WIDTH-CV 13.1 % (11.8-14.6); RBC DIS.WIDTH-SD 40.6 % (39-53); RED BLOOD COUNT 5.49 M/uL (4.00-5.50); WHITE BLOOD COUNT 6.3 K/uL (4.1-10.2)
[2018-01-22 23:02] LABS: CHLORIDE 107 mEq/L (99-109); POTASSIUM 4.3 mEq/L (3.7-5.4); SODIUM 146 mEq/L (136-147)
[2018-01-22 23:04] LABS: GLUCOSE 96 mg/dL (70-99)
[2018-01-22 23:07] LABS: SERUM ETHYL ALCOHOL 287 mg/dL
[2018-01-22 23:08] LABS: CREATININE 0.9 mg/dL (0.6-1.3); GFR ESTIMATE (CALCULATED) > 59 mL/min/ (58.99-99999)
[2018-01-22 23:10] LABS: UREA NITROGEN (BUN) 6 mg/dL (9-23)
[2018-01-22 23:11] LABS: SALICYLATE < 5.0 MG/DL (15-30)
[2018-01-22 23:12] LABS: ACETAMINOPHEN (TYLENOL) < 10 mcg/mL (10-30)
[2018-01-23] MEDS ORDERED: NEURONTIN400 MG PO (15:13)
[2018-01-23] MEDS ORDERED: TRILEPTAL300 MG PO (15:14)
[2018-01-23 15:16] VITALS: BP 139/79
[2018-01-23 16:12] VITALS: BP 139/79
[2018-01-24 07:53] VITALS: BP 119/60
[2018-01-24 15:53] VITALS: BP 125/77
[2018-01-25 09:23] VITALS: BP 111/77
[2018-01-25 15:33] VITALS: BP 123/79
[2018-01-26 08:16] VITALS: BP 114/57
[2018-01-26 15:26] VITALS: BP 121/64
[2018-01-27 08:10] VITALS: BP 110/64
[2018-01-27 15:39] VITALS: BP 121/74
[2018-01-28 07:55] VITALS: BP 122/71
[2018-01-28 15:39] VITALS: BP 107/51
[2018-01-29 07:41] VITALS: BP 111/67
[2018-01-29] MEDS ORDERED: Thiamine,Vitamin B1 PO (08:45)
[2018-01-29] MEDS ORDERED: HYDROXYZINE PAM25 MG PO (08:45)
[2018-01-29] MEDS ORDERED: FOLIC ACID1 MG PO (08:45)
== END 2018-01-29 12:54 | disposition home or self-care (01) | DRG 885 ==
LOC: EME 21:43 → 1WEST 01-23 12:52 → EDOF 01-23 12:52 → ENRESERV 01-23 14:15 → 1WEST 01-23 14:50
PROVIDERS: Emergency Medicine
DX: F33.1 Major depressive disorder, recurrent, moderate (principal); R45.851 Suicidal ideations; F10.220 Alcohol dependence with intoxication, uncomplicated; F43.23 Adjustment disorder with mixed anxiety and depressed mood; Y90.8 Blood alcohol level of 240 mg/100 ml or more; F10.230 Alcohol dependence with withdrawal, uncomplicated; F11.23 Opioid dependence with withdrawal; F17.200 Nicotine dependence, unspecified, uncomplicated
CPT/HCPCS: 80048; 85027; 90839; 97150 GO; 97165 GO; 99281; 99285; G0480; J1630; Q0177

== ENCOUNTER 2018-01-29 18:10 | Emergency (ER) | payer OTHER ==
[~2018-01-29] VITALS: Ht 180.3 cm; Wt 63.0 kg
[~2018-01-29 18:10] MED LIST changes: +HYDROXYZINE PAM25 MG PO; +NEURONTIN400 MG PO; +TRILEPTAL300 MG PO
[2018-01-29 19:30] LABS: BASOPHIL (%) 0.5 % (0-1); EOSINOPHIL (%) 0.4 % (0-5); HEMATOCRIT 43.7 % (38.0-50.0); HEMOGLOBIN 15.2 G/DL (12.5-16.6); IMMATURE GRANULOCYTE (%) 0.2 % (0.0-0.7); LYMPHOCYTE COUNT 1.8 K/uL (1.0-2.8); MCH 28.9 PG (29.0-34.0); MCHC 34.8 G/DL (30.0-36.0); MCV 83.1 FL (86-99); MONOCYTE COUNT 0.3 K/uL (0-0.8); NEUTROPHIL (%) 61.9 % (45-76); NEUTROPHIL COUNT 3.5 K/uL (1.8-6.4); PLATELET COUNT 237 K/uL (156-360); RBC DIS.WIDTH-CV 12.8 % (11.8-14.6); RBC DIS.WIDTH-SD 38.5 % (39-53); RED BLOOD COUNT 5.26 M/uL (4.00-5.50); WHITE BLOOD COUNT 5.6 K/uL (4.1-10.2)
[2018-01-29 20:31] LABS: ALBUMIN 4.8 g/dL (3.2-4.8); CHLORIDE 109 mEq/L (99-109); POTASSIUM 3.5 mEq/L (3.7-5.4); SODIUM 144 mEq/L (136-147)
[2018-01-29 20:34] LABS: GLUCOSE 83 mg/dL (70-99); TOTAL PROTEIN 8.6 g/dL (6.4-8.3)
[2018-01-29 20:35] LABS: TOTAL BILIRUBIN 0.4 mg/dL (0.0-1.0)
[2018-01-29 20:36] LABS: SERUM ETHYL ALCOHOL 263 mg/dL
[2018-01-29 20:37] LABS: CREATININE 0.8 mg/dL (0.6-1.3); GFR ESTIMATE (CALCULATED) > 59 mL/min/ (58.99-99999)
[2018-01-29 20:38] LABS: ALKALINE PHOSPHATASE 81 IU/L (3-129)
[2018-01-29 20:39] LABS: AST (GOT) 19 IU/L (2-34); UREA NITROGEN (BUN) 9 mg/dL (9-23)
[2018-01-29 20:41] LABS: ACETAMINOPHEN (TYLENOL) < 10 mcg/mL (10-30); ALT (GPT) 26 IU/L (3-49); SALICYLATE < 5.0 MG/DL (15-30)
[2018-01-30 02:51] LABS: AMPHETAMINE NEGATIVE (500 ng/mL); BARBITURATES NEGATIVE (200 ng/mL); BENZODIAZEPINES PRESUMPTIVE POSITIVE (150 ng/mL); BUPRENORPHINE NEGATIVE (10 ng/mL); COCAINE NEGATIVE (150 ng/mL); METHADONE NEGATIVE (200 ng/mL); METHAMPHETAMINE NEGATIVE (500 ng/mL); OPIATES (MORPHINE) NEGATIVE (100 ng/mL); OXYCODONE NEGATIVE (100 ng/mL); PHENCYCLIDINE NEGATIVE (25 ng/mL); PROPOXYPHENE NEGATIVE (300 ng/mL); THC CANNABINOIDS NEGATIVE (50 ng/mL); TRICYCLIC ANTIDEPRESSANTS NEGATIVE (300 ng/mL)
[2018-01-30 03:47] VITALS: BP 111/62
[2018-01-30 03:55] LABS: BENZODIAZEPINES, URINE SCREEN POSITIVE (200 ng/mL)
== END 2018-01-30 04:07 | disposition home or self-care (01) ==
LOC: EME 18:10
PROVIDERS: Emergency Medicine
DX: F10.129 Alcohol abuse with intoxication, unspecified (principal); S50.819A Abrasion of unspecified forearm, initial encounter; X78.9XXA Intentional self-harm by unspecified sharp object, initial encounter; F33.2 Major depressive disorder, recurrent severe without psychotic features; J45.909 Unspecified asthma, uncomplicated; F11.20 Opioid dependence, uncomplicated; Z21 Asymptomatic human immunodeficiency virus [HIV] infection status; F41.9 Anxiety disorder, unspecified; F17.200 Nicotine dependence, unspecified, uncomplicated
CPT/HCPCS: 80053; 84999; 85025; 90837; 99281; 99284; G0480; J1630; J2060

== ENCOUNTER 2018-01-30 13:57 | Emergency (ER) | payer OTHER ==
[~2018-01-30] VITALS: Ht 170.2 cm; Wt 56.7 kg
[2018-01-30 14:39] LABS: HEMATOCRIT 41.7 % (38.0-50.0); HEMOGLOBIN 14.7 G/DL (12.5-16.6); MCH 29.2 PG (29.0-34.0); MCHC 35.3 G/DL (30.0-36.0); MCV 82.9 FL (86-99); PLATELET COUNT 232 K/uL (156-360); RBC DIS.WIDTH-SD 39.1 % (39-53); RED BLOOD COUNT 5.03 M/uL (4.00-5.50); WHITE BLOOD COUNT 7.7 K/uL (4.1-10.2)
[2018-01-30 14:49] LABS: CHLORIDE 107 mEq/L (99-109); POTASSIUM 2.8 mEq/L (3.7-5.4); SODIUM 142 mEq/L (136-147)
[2018-01-30 14:51] LABS: GLUCOSE 65 mg/dL (70-99)
[2018-01-30 14:51] LABS: AMPHETAMINE NEGATIVE (500 ng/mL); BARBITURATES NEGATIVE (200 ng/mL); BENZODIAZEPINES PRESUMPTIVE POSITIVE (150 ng/mL); BUPRENORPHINE NEGATIVE (10 ng/mL); COCAINE NEGATIVE (150 ng/mL); METHADONE NEGATIVE (200 ng/mL); METHAMPHETAMINE NEGATIVE (500 ng/mL); OPIATES (MORPHINE) NEGATIVE (100 ng/mL); OXYCODONE NEGATIVE (100 ng/mL); PHENCYCLIDINE NEGATIVE (25 ng/mL); PROPOXYPHENE NEGATIVE (300 ng/mL); THC CANNABINOIDS NEGATIVE (50 ng/mL); TRICYCLIC ANTIDEPRESSANTS NEGATIVE (300 ng/mL)
[2018-01-30 14:54] LABS: SERUM ETHYL ALCOHOL 210 mg/dL
[2018-01-30 14:55] LABS: CREATININE 0.8 mg/dL (0.6-1.3); GFR ESTIMATE (CALCULATED) > 59 mL/min/ (58.99-99999)
[2018-01-30 14:56] LABS: UREA NITROGEN (BUN) 8 mg/dL (9-23)
[2018-01-30 15:33] LABS: BENZODIAZEPINES, URINE SCREEN POSITIVE (200 ng/mL)
[2018-01-30 19:31] VITALS: BP 137/74
== END 2018-01-30 19:31 | disposition home or self-care (01) ==
LOC: EME 13:57
PROVIDERS: Emergency Medicine Emergency Medical Services
DX: F33.2 Major depressive disorder, recurrent severe without psychotic features (principal); F60.9 Personality disorder, unspecified; R44.0 Auditory hallucinations; S60.811A Abrasion of right wrist, initial encounter; X78.9XXA Intentional self-harm by unspecified sharp object, initial encounter; R05 Cough; F10.99 Alcohol use, unspecified with unspecified alcohol-induced disorder; B20 Human immunodeficiency virus [HIV] disease; F17.200 Nicotine dependence, unspecified, uncomplicated; Y90.7 Blood alcohol level of 200-239 mg/100 ml
CPT/HCPCS: 80048; 84999; 85027; 90837; 99281; 99285; G0480

== ENCOUNTER 2018-01-31 22:04 | Emergency (ER) | payer OTHER ==
[~2018-01-31] VITALS: Ht 170.2 cm; Wt 56.7 kg
[2018-01-31 23:01] LABS: BASOPHIL (%) 0.5 % (0-1); EOSINOPHIL (%) 0.9 % (0-5); EOSINOPHIL COUNT 0.1 K/uL (0-0.3); HEMOGLOBIN 14.2 G/DL (12.5-16.6); IMMATURE GRANULOCYTE (%) 0.2 % (0.0-0.7); LYMPHOCYTE (%) 30.8 % (15-42); MCH 28.8 PG (29.0-34.0); MCHC 34.6 G/DL (30.0-36.0); MCV 83.2 FL (86-99); MONOCYTE COUNT 0.7 K/uL (0-0.8); NEUTROPHIL (%) 56.6 % (45-76); NEUTROPHIL COUNT 3.7 K/uL (1.8-6.4); PLATELET COUNT 198 K/uL (156-360); RBC DIS.WIDTH-SD 39.7 % (39-53); RED BLOOD COUNT 4.93 M/uL (4.00-5.50); WHITE BLOOD COUNT 6.5 K/uL (4.1-10.2)
[2018-01-31 23:14] LABS: CHLORIDE 103 mEq/L (99-109); SODIUM 140 mEq/L (136-147)
[2018-01-31 23:16] LABS: GLUCOSE 91 mg/dL (70-99)
[2018-01-31 23:19] LABS: CREATININE 0.8 mg/dL (0.6-1.3); GFR ESTIMATE (CALCULATED) > 59 mL/min/ (58.99-99999)
[2018-01-31 23:20] LABS: UREA NITROGEN (BUN) 8 mg/dL (9-23)
[2018-01-31 23:22] LABS: CREATINE KINASE 547 IU/L (1-294)
[2018-02-01] MEDS ORDERED: NARCAN4 MG NS (00:08)
[2018-02-01 01:14] VITALS: BP 107/56
== END 2018-02-01 01:31 | disposition home or self-care (01) ==
LOC: EME → EDBD 22:04 → EME 22:04
PROVIDERS: Emergency Medicine
DX: T40.1X1A Poisoning by heroin, accidental (unintentional), initial encounter (principal); F11.129 Opioid abuse with intoxication, unspecified; F19.129 Other psychoactive substance abuse with intoxication, unspecified; J45.909 Unspecified asthma, uncomplicated; R56.9 Unspecified convulsions; B20 Human immunodeficiency virus [HIV] disease; F17.200 Nicotine dependence, unspecified, uncomplicated; Z79.891 Long term (current) use of opiate analgesic
CPT/HCPCS: 80048; 82550; 85025; 93005; 99281; 99285; J7030

== ENCOUNTER 2018-02-05 20:42 | Emergency (ER) | payer OTHER ==
[~2018-02-05] VITALS: Ht 170.2 cm; Wt 65.6 kg
[2018-02-05 22:49] LABS: HEMATOCRIT 40.3 % (38.0-50.0); HEMOGLOBIN 13.9 G/DL (12.5-16.6); MCH 28.8 PG (29.0-34.0); MCHC 34.5 G/DL (30.0-36.0); MCV 83.6 FL (86-99); PLATELET COUNT 225 K/uL (156-360); RBC DIS.WIDTH-CV 13.2 % (11.8-14.6); RBC DIS.WIDTH-SD 39.7 % (39-53); RED BLOOD COUNT 4.82 M/uL (4.00-5.50); WHITE BLOOD COUNT 5.1 K/uL (4.1-10.2)
[2018-02-05 22:57] LABS: ALBUMIN 4.2 g/dL (3.2-4.8); CHLORIDE 106 mEq/L (99-109); SODIUM 144 mEq/L (136-147)
[2018-02-05 23:00] LABS: GLUCOSE 97 mg/dL (70-99); TOTAL PROTEIN 7.8 g/dL (6.4-8.3)
[2018-02-05 23:01] LABS: TOTAL BILIRUBIN 0.4 mg/dL (0.0-1.0)
[2018-02-05 23:02] LABS: SERUM ETHYL ALCOHOL 207 mg/dL
[2018-02-05 23:03] LABS: ALKALINE PHOSPHATASE 74 IU/L (3-129); CREATININE 0.8 mg/dL (0.6-1.3); GFR ESTIMATE (CALCULATED) > 59 mL/min/ (58.99-99999)
[2018-02-05 23:04] LABS: UREA NITROGEN (BUN) 15 mg/dL (9-23)
[2018-02-05 23:05] LABS: AST (GOT) 21 IU/L (2-34)
[2018-02-05 23:06] LABS: ALT (GPT) 20 IU/L (3-49)
[2018-02-06 07:28] VITALS: BP 140/96
== END 2018-02-06 08:01 | disposition home or self-care (01) ==
LOC: EME 20:42
PROVIDERS: Emergency Medicine
DX: F19.10 Other psychoactive substance abuse, uncomplicated (principal); F10.229 Alcohol dependence with intoxication, unspecified; Y90.7 Blood alcohol level of 200-239 mg/100 ml; F33.1 Major depressive disorder, recurrent, moderate; R45.851 Suicidal ideations; F43.25 Adjustment disorder with mixed disturbance of emotions and conduct; J45.909 Unspecified asthma, uncomplicated; R56.9 Unspecified convulsions; Z21 Asymptomatic human immunodeficiency virus [HIV] infection status; F17.200 Nicotine dependence, unspecified, uncomplicated
CPT/HCPCS: 80053; 81003; 85027; 90837; 99281; 99285; G0480; J1630; J2060

== ENCOUNTER 2018-02-08 15:00 | Emergency (ER) | payer OTHER ==
[~2018-02-08] VITALS: Ht 170.2 cm; Wt 67.9 kg
[2018-02-08 16:00] LABS: HEMATOCRIT 42.9 % (38.0-50.0); HEMOGLOBIN 14.8 G/DL (12.5-16.6); MCH 29.1 PG (29.0-34.0); MCHC 34.5 G/DL (30.0-36.0); MCV 84.4 FL (86-99); PLATELET COUNT 218 K/uL (156-360); RBC DIS.WIDTH-CV 13.3 % (11.8-14.6); RBC DIS.WIDTH-SD 40.6 % (39-53); RED BLOOD COUNT 5.08 M/uL (4.00-5.50); WHITE BLOOD COUNT 5.5 K/uL (4.1-10.2)
[2018-02-08 16:08] LABS: CHLORIDE 105 mEq/L (99-109); POTASSIUM 4.1 mEq/L (3.7-5.4); SODIUM 142 mEq/L (136-147)
[2018-02-08 16:10] LABS: GLUCOSE 87 mg/dL (70-99)
[2018-02-08 16:13] LABS: SERUM ETHYL ALCOHOL 61 mg/dL
[2018-02-08 16:14] LABS: CREATININE 0.9 mg/dL (0.6-1.3); GFR ESTIMATE (CALCULATED) > 59 mL/min/ (58.99-99999)
[2018-02-08 16:15] LABS: UREA NITROGEN (BUN) 9 mg/dL (9-23)
[2018-02-08 16:20] LABS: TROP-I INTERPRETATION NEGATIVE; TROPONIN-I < 0.01 ng/mL (0.0-0.30)
[2018-02-08 18:14] VITALS: BP 130/101
== END 2018-02-08 18:30 | disposition home or self-care (01) ==
LOC: EME 15:00
PROVIDERS: Emergency Medicine
DX: T40.1X1A Poisoning by heroin, accidental (unintentional), initial encounter (principal); R00.0 Tachycardia, unspecified; J45.909 Unspecified asthma, uncomplicated; R56.9 Unspecified convulsions; B20 Human immunodeficiency virus [HIV] disease; F17.200 Nicotine dependence, unspecified, uncomplicated; Z79.891 Long term (current) use of opiate analgesic
CPT/HCPCS: 71045; 80048; 84484; 85027; 90839; 93005; 99281; 99285; G0480; J7030

== ENCOUNTER 2018-02-13 11:48 | Emergency (ER) | payer OTHER ==
[~2018-02-13] VITALS: Ht 170.2 cm; Wt 69.5 kg
[2018-02-13] MEDS ORDERED: LIBRIUM25 MG PO (13:16)
[2018-02-13 14:07] VITALS: BP 145/88
== END 2018-02-13 14:43 | disposition home or self-care (01) ==
LOC: EME 11:48
DX: F10.20 Alcohol dependence, uncomplicated (principal); R25.9 Unspecified abnormal involuntary movements; R61 Generalized hyperhidrosis; B20 Human immunodeficiency virus [HIV] disease; F17.200 Nicotine dependence, unspecified, uncomplicated
CPT/HCPCS: 99281; 99283